=== PATIENT | female | born 1975 | race Caucasian/White ===

== ENCOUNTER 2024-02-06 18:11 | Emergency (ER) | payer MEDICARE, MEDICAID, SELFPAY ==
[2024-02-06 18:13] VITALS: BP 114/88
--- NOTE | 2024-02-06 18:35 | ED.GENMED ---
History of Present Illness
General
Chief Complaint: Head Injury
Source: caretaker grounds
Exam Limitations: other (Autistic)
Time Seen by Provider: 02/06/24 18:21
History of Present Illness
History of Present Illness:
This is a 48 year old female that is brought in by her care given with c/o facial injury. mission planner states that she just came on duty at 5pm and was old to bring her to the hospital. Patient has bruising around the right eye and they are unable to
say how this happened. Patient is unable to give you any information. mission planner denies any fever, chills, nausea, vomiting, diarrhea.
Past History
Past History
ED Past Medical History: NIDDM, Hypothyroidism, Psychiatric (Anxiety) and Other (Autism)
ED Past Surgical History: None
Social History
Tobacco: Non-smoker
Alcohol: None
Drug: None
Personal: Single
Living: alone (Has 24 hours care givers, Family visits once a week. )
Review of Systems
Review of Systems
Other source history: other (mission planner)
All Other Systems: ROS reviewed and negative except as documented in HPI and ROS
Constitutional: Reports no symptoms; Denies fever or chills
EENT: Reports no symptoms
Respiratory: Reports no symptoms
Cardiac: Reports no symptoms
ABD/GI: Reports no symptoms; Denies nausea, vomiting or diarrhea
: Reports no symptoms
Musculoskeletal: Reports no symptoms
Skin: Reports other (Contusion right eye)
Neurological: Reports no symptoms
Psychiatric: Reports anxiety
Phy Exam
General Physical Exam
General Presentation: no apparent distress
General age: appears stated age
General Skin: warm and dry
General Habitus: normal
General Mental: usual mental status
General Hydration: appears well hydrated
ENT Exam
ENT Exam: TM's normal, pharynx normal and neck supple
Eye Exam
Eye Exam: EOMI
Cardiovascular Exam
Cardiovascular Exam: regular rate/rhythm, no edema and normal peripheral pulses
Pulmonary Exam
Pulmonary Exam: lungs clear, no respiratory distress, no rales, chest non tender, no crackles, no rhonchi, no wheezing and no cough
Gastrointestinal Exam
Gastrointestinal Exam: normal bowel sounds, non tender, soft, no organomegaly, no pulsatile mass and non distended
Musculoskeletal Exam
Musculoskeletal Exam: full ROM and no edema
Skin Exam
Skin Exam: normal color, warm/dry, no petechia and other (Contusion around right eye. Unable to say if there is any pain with palpation but attempts to get off the bed. )
Psychiatric Exam
Psychiatric Exam: anxious
Course
Orders/Labs/Results
Orders:
Orders
02/06/24 18:33
CT Facial Bones W/o Iv Contras Urgent
Comment: Patient is autistic and unable to say what happene
Reason For Exam: Facial bruising,
CT Head W/o Iv Contrast Urgent
Comment:
Reason For Exam: Facial bruising Unknown injury,
02/06/24 18:35
Lorazepam [Ativan] 1 mg PO NOW STA
Vital Signs
Initial and Last Documented VS:
Initial Vital Signs
Temp Pulse Resp BP Pulse Ox
98.3 F 78 16 114/88 96
02/06/24 18:13 02/06/24 18:13 02/06/24 18:13 02/06/24 18:13 02/06/24 18:13
Last Documented Vital Signs
Temp Pulse Resp BP Pulse Ox
98.3 F 78 16 114/88 96
02/06/24 18:13 02/06/24 18:13 02/06/24 18:13 02/06/24 18:13 02/06/24 18:13
MDM/Problems Addressed
Differential Diagnosis Includes:
Contusion, Facial fractures.
MDM/Problems Addressed:
This is a 48 autistic patient that is brought in by caretaker grounds. mission planner states that she came on at 5pm and was told to bring her to the Hospital. Patient has bruising around the right eye. Unknown what caused her injury.
Will get CT head and facial bones.
Back into see mission planner and patient. Explained that the CT of her head and facial bones are negative for any acute process. This is just a contusion around the eye. It will go away on its own. Patient to follow up with the family doctor. Return
with any concerns.
Chronic conditions affecting care:
Autism
Acute Exacerbation and/or Progression of Chronic Illness:
Autism
*Radiology
Radiology exam reviewed: radiology read reviewed (CT head-there are no focal or acute intracranial abnormalities. there is mild diffuse cortical and cerebellar atrophy. CT facial bones-There ar no facial bone fractures. There is mild mucosal
thickening in both maxillary sinuses. )
*Pulse Oximetry
Patient hypoxic: no
*EKG
Interpreted by ED Provider?: NA
Rate: EKG- N/A
*Wrapper Hands Sprayer Interpretation
Rate: Wrapper Hands Sprayer- N/A
*Critical Care Note
Total Time (30-74mins, 75-104mins- exclusive of procedures): Not Applicable
ED Attending Note
-
Portions of this chart may have been created with voice recognition software.� Occasional wrong word or��sound alike� substitutions may have occurred due to the inherent limitations of voice recognition software.
Discharge Plan
Departure
Patient Disposition: Home (Routine Discharge)
Date of Disposition: 02/06/24
Time of Disposition: 19:50
Patient with high blood pressure during this ER visit?: No
Condition: Good
Covid-19: Not Applicable
Discharge Problem:
Black eye of right side
Instructions: Contusion (DC)
Referrals:
UNKNOWN - PT DOES,NOT KNOW [Family Provider] -
Activity Restrictions/Additional Instructions:
As discussed, your CT of the head and facial bones is negative for any acute process or fractures. You may use Ice to the right eye to help with swelling. Tylenol for any discomfort. Follow up with the family doctor as needed. IF YOU HAVE ANY OTHER
CONCERNS PLEASE RETURN TO THE EMERGENCY ROOM.
Interventions
Interventions:
*Risk Screen - Suicide Last Done: 02/06/24 19:08
*General Assessment Last Done: 02/06/24 19:08
*Neglect/Abuse Screening Last Done: 02/06/24 19:08
ED- Fall Risk Assessment Last Done: 02/06/24 19:08
*ED COVID-19 Vaccine History Last Done: 02/06/24 19:08
ED- Neurological Assessment Last Done: 02/06/24 18:45
ED-Skin Assessment Last Done: 02/06/24 18:45
Discharge Date and Time
Print Language: DIVEHI
[2024-02-06] MEDS: ATIVAN 1 MG PO (18:44)
== END 2024-02-06 19:57 | disposition home or self-care (01) ==
LOC: EMR 18:11
PROVIDERS: EMERGENCY PHYSICIAN Emergency Medicine
DX: S00.11XA Contusion of right eyelid and periocular area, initial encounter (principal); X58.XXXA Exposure to other specified factors, initial encounter; E11.9 Type 2 diabetes mellitus without complications; F41.9 Anxiety disorder, unspecified; F84.0 Autistic disorder; E03.9 Hypothyroidism, unspecified; G31.9 Degenerative disease of nervous system, unspecified; Z88.8 Allergy status to other drugs, medicaments and biological substances
CPT/HCPCS: 99284; 70450; 70486

== ENCOUNTER 2025-01-07 19:54 | Inpatient (IN) | payer MEDICARE, MEDICAID, SELFPAY ==
[2025-01-07 15:17] VITALS: BP 137/85
--- NOTE | 2025-01-07 17:37 | ED.GENMED ---
History of Present Illness
General
Chief Complaint: Skin Problem
Source: acute care physical therapist
Exam Limitations: other (Autism)
Time Seen by Provider: 01/07/25 17:18
History of Present Illness
History of Present Illness:
Noted to have a rash to the right abdominal wall days ago. Started Bactrim 2 doses. Rash spread today. Low-grade fever. No other issues noted by the staff. No shaking chills vomiting lethargy etc.
Past History
Past History
ED Past Medical History: NIDDM, Hypothyroidism, Psychiatric (Anxiety) and Other (Autism)
ED Past Surgical History: None
Social History
Tobacco: Non-smoker
Alcohol: None
Drug: None
Personal: Single
Living: alone (Has 24 hours care givers, Family visits once a week. )
Review of Systems
Review of Systems
All Other Systems: Not applicable
Constitutional: Reports fever; Denies chills
Respiratory: Reports no symptoms
Cardiac: Reports no symptoms
Phy Exam
Physical Exam
Physical Exam:
GENERAL: Alert. Does not interact. Autistic. Nontoxic however.
EYE: Orbits normal.
NECK: Supple
CARDIAC: Regular rate and rhythm without any obvious murmurs.
LUNGS: Clear breath sounds,normal
ABDOMEN: Soft, without focal tenderness or distention
NEUROLOGICAL: Alert and oriented , grossly non-focal
SKIN: Warm and dry, large area of ovoid erythema to the right upper anterior abdominal wall with central increased erythema. No fluctuance. No drainage. Most consistent with a infected bite.
MUSCULOSKELETAL: No edema,no deformity.Good color
PSYCH: Normal and appropriate interaction.
Course
Orders/Labs/Results
Orders:
Orders
01/07/25 Breakfast
Regular
At Your Request: Limited, Lay Out Helper Required
01/07/25 17:31
IV Insert/Care/Rem.- Treatment PRN
CeFAZolin 2 GRAM [Ancef] 2 grams in 10 ml IV NOW
01/07/25 17:37
Basic Metabolic Panel Urgent
Complete Blood Count/With Diff Urgent
Lyme Progressive Urgent
01/07/25 17:54
Blood Culture Q30M
JM Source: Blood/Venous
Specimen Description:
01/07/25 18:04
Acetaminophen [Tylenol] 650 mg .ROUTE .STK-MED ONE
01/07/25 18:06
Acetaminophen [Tylenol] 650 mg PO NOW STA
01/07/25 18:19
Blood Culture Urgent
JM Source: Blood/Venous
Specimen Description:
01/07/25 19:27
0.9% Sodium Chloride 500 ml [Nss] 500 ml IV BOLUS
01/07/25 19:30
Admit/Transfer Patient As Directed
Co-Sign Provider:
Level of Care: Inpatient admission
Assign to:: Telemetry
Physician / Group: galilea
Diagnosis: abdominal wall cellultisi
Reason for Telemetry: Arrhythmia
Date to Stop Telemetry: 01/10/25
Time to Stop Telemetry: 11:00
Reason for Hospitalization: abdominal wall cellulitis
Expected length of stay greater than two midnights?: Yes
ELOS- Estimated Length of Stay in days: 3
I certify the patient meets the requirements for IP care: Yes
PRN Pain Medication Management As Directed
May give lesser potent ordered pain med per pt: Yes
preference::
Protocol:: Medication orders for pain may be administered in a
manner that supports deferring to patient preference
when the pt is:
- Requesting an ordered lesser potent pain medication.
Least to most potent pain medications are defined
as: acetaminophen < NSAID < tramadol < opioids
(morphine, oxycodone, hydromorphone).
- Requesting a lesser dose of the same medication IF
ORDERED.
- Requesting a less intrusive route of administration
if both routes are prescribed by the provider (PO <
IV).
01/07/25 19:32
Code Status As Directed
Resuscitation Status: Full Code
01/07/25 19:49
Lorazepam [Ativan] 2 mg .ROUTE .STK-MED ONE
01/07/25 20:46
0.9% Sodium Chloride 1000 ml [Nss] 1,000 ml IV 100 mls/hr
Acetaminophen [Tylenol] 650 mg PO Q4HPRN PRN
Carbamide Peroxide [Debrox Ear Drops] See Dose Instructions OTIC BIDPRN PRN
CeFAZolin 2 GRAM [Ancef] 2 grams in 10 ml IV Q8H
Clonazepam [Klonopin] 0.5 mg PO BID
Clonazepam [Klonopin] 1 mg PO TID@08,16,20
Divalproex Extended Rel. 24 Hr [Depakote ER (24 Hr Release)] 500 mg PO BID
Docusate Sodium [Colace] 100 mg PO BID
betamethasone dipropionate 1 applic TOPICAL TIDPRN PRN
ferrous sulfate 140 mg PO BID
01/07/25 20:46
Activity As Directed
Activity Level: Out of Bed-Early Mobility
Intake/ Output As Directed
Frequency: Per unit guidelines
Vital Signs As Directed
Frequency: Per unit guidelines
DX Deep Vein Thrombosis Video Routine
01/07/25 22:00
Quetiapine Fumarate [Seroquel] 25 mg PO BID
Quetiapine Fumarate [Seroquel] 300 mg PO BID
01/08/25 06:00
Levothyroxine [Synthroid] 50 mcg PO DAILY @ 0600
01/08/25 08:00
Calcium Polycarbophil [Fibercon] 1,250 mg PO DAILY
Divalproex Extended Rel. 24 Hr [Depakote ER (24 Hr Release)] 250 mg PO DAILY
Sertraline HCl [Zoloft] 25 mg PO DAILY
norgestimate-ethinyl estradiol [Tri-Sprintec (28)] See Dose Instructions PO DAILY
01/08/25 18:00
Enoxaparin Sodium [Lovenox] 40 mg SC QPM
01/10/25 11:00
DC Protocol for Telemetry ONCE
Abnormal Lab Results
01/07/25
17:37
RBC 3.52 L 10^6/uL
(4.20-5.40)
Hgb 11.8 L g/dL
(12.0-16.0)
Hct 32.6 L %
(37.0-47.0)
MCH 33.5 H pg
(27.0-31.0)
MPV 10.9 H fL
(7.4-10.4)
Absolute Lymphs (auto) 0.7 L 10^3/uL
(1.2-3.4)
Absolute Monos (auto) 0.7 H 10^3/uL
(0.1-0.6)
Immature Gran % 0.6 H %
(0-0.5)
Lymphocytes % 14.2 L %
(20.5-51.1)
Monocytes % 14.2 H %
(1.7-9.3)
Sodium 133 L mmol/L
(135-145)
Glucose 121 H mg/dl
(70-99)
01/07/25 17:37
01/07/25 17:37
Vital Signs
Initial and Last Documented VS:
Initial Vital Signs
Temp Pulse Resp BP Pulse Ox
100.2 F 105 20 137/85 100
01/07/25 15:17 01/07/25 15:17 01/07/25 15:17 01/07/25 15:17 01/07/25 15:17
Last Documented Vital Signs
Temp Pulse Resp BP Pulse Ox
98.1 F 78 16 109/65 97
01/07/25 20:55 01/07/25 20:55 01/07/25 20:55 01/07/25 20:55 01/07/25 20:55
MDM/Problems Addressed
Differential Diagnosis Includes:
Patient with a cellulitic/infected bite appearance to the right upper abdominal wall. She is nontoxic otherwise however. She just darted Bactrim 2 doses ago. At this time I would not call this of Bactrim failure. Would also consider Lyme disease
given the ovoid appearance. Admission versus outpatient management at this time. Patient apparently would be quite difficult to manage in the hospital with her autism. Discussed this with the staff.
*Pulse Oximetry
Patient hypoxic: no
*Critical Care Note
Total Time (30-74mins, 75-104mins- exclusive of procedures): Not Applicable
ED Attending Note
-
Portions of this chart may have been created with voice recognition software.� Occasional wrong word or��sound alike� substitutions may have occurred due to the inherent limitations of voice recognition software.
Discharge Plan
Departure
Patient Disposition: Admit
Date of Disposition: 01/07/25
Time of Disposition: 19:09
Presentation/result/management discussed w/ accepting MD/DO: Hospitalist
Discharge Problem:
Abdominal wall cellulitis
Interventions
Interventions:
*Risk Screen - Suicide Last Done: 01/07/25 15:17
*General Assessment Last Done: 01/07/25 15:17
*Neglect/Abuse Screening Last Done: 01/07/25 15:17
*ED- Fall Risk Assessment Last Done: 01/07/25 18:34
*ED COVID-19 Vaccine History Last Done: 01/07/25 17:48
*Nursing Disposition Last Done: 01/07/25 20:42
ED-Skin Assessment Last Done: 01/07/25 17:48
Discharge Date and Time
Discharge Date/Time: 01/07/25 20:43
[2025-01-07 17:50] LABS: % Basophils 0.6 % (0-2); % Immature Granulocytes 0.6 % (0-0.5); % Lymphocytes 14.2 % (20.5-51.1); % Monocytes 14.2 % (1.7-9.3); % Neutrophils 70.4 % (42.2-75.2); Absolute Lymphocytes 0.7 10^3/uL (1.2-3.4); Absolute Monocytes 0.7 10^3/uL (0.1-0.6); Absolute Neutrophils 3.6 10^3/uL (1.4-6.5); Hematocrit 32.6 % (37.0-47.0); Hemoglobin 11.8 g/dL (12.0-16.0); Mean Corp Hgb Conc. 36.2 g/dL (33.0-37.0); Mean Corpuscular Hgb 33.5 pg (27.0-31.0); Mean Corpuscular Volume 92.6 fL (81.0-99.0); Mean Platelet Volume 10.9 fL (7.4-10.4); Nucleated Red Blood Cells % 0 %; Platelet Count 142 10^3/uL (130-400); Red Blood Cell Count 3.52 10^6/uL (4.20-5.40); Red Cell Dist. Width 12.8 % (11.5-14.5); White Blood Cell Count 5.1 10^3/uL (4.8-10.8)
[2025-01-07] MEDS: ANCEF 10 IV (17:57)
[2025-01-07 18:02] VITALS: BP 136/64
[2025-01-07] MEDS: TYLENOL 650 MG PO (18:06)
[2025-01-07 18:07] LABS: Blood Urea Nitrogen 14 mg/dl (7-17); Calcium 8.7 mg/dl (8.4-10.2); Carbon Dioxide 26 mmol/L (22-30); Chloride 102 mmol/L (98-107); Glucose 121 mg/dl (70-99); Potassium 4.2 mmol/L (3.5-5.1); Sodium 133 mmol/L (135-145); eGFR > 60.00
--- NOTE | 2025-01-07 19:12 | HPS.HSE ---
Family Physician
-
Family Physician: Ashia Ortez
Chief Complaint
-
right abdominal wall cellulitis
History of Present Illness
49 year old with PMH for anxiety, intellectual disability, Autism, Bipolar presented to us right abdominal wall cellulitis since Saturday. it got progressively worse and noted low grade temp today. ROS is limited as patient is disable. patient
received Bactrim since yesterday.
Patient received Ancef in ER. Admitted for further management
Medical History
Past Medical History
Past Medical History: Reports Other
Additional Past Medical History:
NIDDM
hypothyroidism
anxiety
Autism
Past Surgical History: Reports None
Social History
Tobacco: Non-smoker
Alcohol: None
Drug: None
Personal: Single
Family History
Family History: Not pertinent
Allergies / Home Medications
Allergies reflects when Allergies were last updated in [facility].
Home Medications with original date entered in [facility]
Allergy/Medication List:
Allergies
Allergy/AdvReac Type Severity Reaction Status Date / Time
carbamazepine [From Tegretol] Allergy Unknown Verified 01/07/25 15:22
fenofibrate nanocrystallized Allergy Unknown Verified 01/07/25 15:22
[From Tricor]
fenofibrate,micronized Allergy Unknown Verified 01/07/25 15:22
[From Tricor]
lithium Allergy Rash Verified 01/07/25 15:22
phenytoin sodium Allergy Rash Verified 01/07/25 15:22
[From Dilantin]
phenytoin sodium extended Allergy Rash Verified 01/07/25 15:22
[From Dilantin]
Home Medications
acetaminophen 325 mg tablet (Tylenol) 650 mg PO Q4HPRN PRN mild pain 01/07/25
betamethasone dipropionate 0.05 % lotion 1 applic topical TIDPRN PRN fac,arms,stomach 01/07/25
bismuth subsalicylate 262 mg tablet (Stomach Relief) 262 mg PO TIDPRN PRN stomach issuses 01/07/25
calamine 1 ea topical TIDPRN PRN hives 01/07/25
calcium polycarbophil 625 mg tablet (FiberCon) 1,250 mg PO DAILY 01/07/25
carbamide peroxide 6.5 % ear drops (Debrox) 2 drp otic (ear) BIDPRN PRN ear wax 01/07/25
clobetasol 0.05 % topical ointment 1 applic topical BID poison pablo 01/07/25
clonazepam 0.5 mg tablet 0.5 mg PO BID 01/07/25
clonazepam 1 mg tablet 1 mg PO TID@08,16,20 01/07/25
diphenhydramine HCl 50 mg capsule (Banophen) 50 mg PO Q4HPRN PRN alleriges 01/07/25
divalproex 250 mg tablet,extended release 24 hr 250 mg PO DAILY 01/07/25
divalproex 500 mg tablet,extended release 24 hr 500 mg PO BID 01/07/25
docusate sodium 100 mg capsule (Colace) 100 mg PO BID 01/07/25
ferrous sulfate 140 mg (45 mg iron) tablet,extended release 140 mg PO BID 01/07/25
guaifenesin 100 mg/5 mL oral liquid 400 mg PO QIDPRN PRN cough 01/07/25
hydrocortisone 1 % lotion 1 applic topical BIDPRN PRN dry skin 01/07/25
ibuprofen 200 mg tablet (Advil) 200 mg PO Q4HPRN PRN mild pain 01/07/25
levothyroxine 50 mcg tablet (Synthroid) 50 mcg PO DAILY 01/07/25
loratadine 10 mg tablet 10 mg PO DAILYPRN PRN allergies 01/07/25
lorazepam 1 mg tablet 1 mg PO DAILYPRN PRN 2 hours before appointments 01/07/25
neomycin-bacitracn Zn-polymyxn 3.5 mg-400 unit-5,000 unit top oint pkt (Triple Antibiotic) 1 applic topical BIDPRN PRN scratches 01/07/25
norgestimate-ethinyl estradiol 0.18mg/0.215mg/0.25mg-0.035mg(28)tablet (Tri-Sprintec (28)) 1 tab PO DAILY 01/07/25
phenylephrine 0.25 %-pramoxine 1 %-glycerin-wh.petrolatum rectal cream (Hemorrhoidal Cream) 1 applic MA TIDPRN PRN hemmorriods 01/07/25
quetiapine 25 mg tablet (Seroquel) 25 mg PO BID 01/07/25
quetiapine 300 mg tablet (Seroquel) 300 mg PO BID 01/07/25
sertraline 25 mg tablet 25 mg PO DAILY 01/07/25
sodium hypochlorite 0.5 % solution (Dakin's Solution) 1 applic topical DAILYPRN PRN where finger nail came off 01/07/25
Review of Systems
-
Constitutional: Reports No Symptoms
EENT: Reports No Symptoms
Respiratory: Reports No Symptoms
Cardiac: Reports No Symptoms
Abdomen/GI: Reports No Symptoms
: Reports No Symptoms
Musculoskeletal: Reports No Symptoms
Skin: Reports Rash
Neurological: Reports No Symptoms
Endocrine: Reports No Symptoms
Hematologic/Lymphatic: Reports No Symptoms
Psych: Reports No Symptoms
Physical Exam
Vital Signs
Vital Signs
Temp Pulse Resp BP Pulse Ox
102.2 F H 100 18 136/64 99
01/07/25 17:47 01/07/25 18:02 01/07/25 18:02 01/07/25 18:02 01/07/25 18:02
Physical Exam
General: Well Developed, Well Nourished and No Apparent Distress
HEENT: NormoCephalic, Moist mucous membranes and Atraumatic
Respiratory: Clear
Cardiac: S1/S2 and Regular Rhythm; No Murmur or Rub
GI: Soft, Non Tender, Non Distended and Normal Bowel Sounds; No Organomegaly
Rectal: Deferred by Provider
Musculoskeletal: No Clubbing, No Cyanosis and No Edema
Skin: Rash and Other (Right-sided abdominal wall rash)
Neuro: Nonfocal/grossly intact
Psych: Calm
Laboratory Results
-
01/07/25 17:37
01/07/25 17:37
Data Reviewed
-
Lab Data: Labs Reviewed by me
Impression/Plan
-
#sepsis secondary to abdominal wall cellulitis
-sepsis as evident by temp of 102.2, HR 100
-blood culture sent from ER
- IV Ancef
- Tylenol as needed for fever
- Fluids continued
# Autism
# Intellectual disability
# Bipolar/anxiety
- Sertraline, Seroquel lorazepam, Depakote, clonazepam continued
# Hypothyroidism
- Levothyroxine continued
# DVT prophylaxis
- Lovenox subcu
# CODE STATUS
-full code
-
--- NOTE | 2025-01-07 19:26 | W.PN.UPDATE ---
Update Note
Progress Note Update
Patient seen in conjunction with YADIRA. I agree with the findings and Scope. I concur with assessment plan listed otherwise.
Briefly, this is a 49-year-old female past medical history of intellectual developmental delay, autism, bipolar disorder, presenting to the emergency department with worsening or right-sided abdominal rash and fever.
Patient lives by self with 24-hour caregivers due to her condition and appear to be under the care of guardian institution. They reported that she had a small red spots that developed about 2 days ago. Yesterday she was seen at urgent care and was
diagnosed with cellulitis. She was started on Bactrim. She took a dose of Bactrim yesterday and today. When she was seen by the visiting nurse today they noticed a fever and worsening redness. Patient unable to provide history of self.
Family/caregiver denies any itching or scratching. They denied any known wounds. They denied any known animal or insect bites.
In the emergency department the patient was febrile to 102.2, blood pressure was 136/64 with a pulse rate of 100 and she was satting 99% on room air.
CBC was unremarkable. Electrolytes BUN/creatinine were all in the normal range.
Assessment and plan
49-year-old with history of intellectual developmental delay, bipolar disorder who presents to the emergency department with worsening abdominal cellulitis of unknown etiology. I suspect possibility of insect bite as the original source however
with the fever and with increasing redness there is suggestion of sepsis secondary to cellulitis.
- admit to med/surg
- Blood cultures
- IV cefazolin
- Check MRSA swab
- 1 L NS bolus, continue at 100 cc/h of normal saline
- Continue home medications
- Will as needed lorazepam for agitation
- DVT PPX - lovenox sq
Code status - Full Code
[2025-01-07] MEDS: NSS 500 IV (19:56)
[2025-01-07] MEDS: ATIVAN 0.5 MG IV (20:03)
[2025-01-07 20:55] VITALS: BP 109/65
--- NOTE | 2025-01-07 21:30 | PTCARENOTE ---
Received patient from ER. AAO X1. home care chaplain at bedside. Agitated. trying to pull out IV/ tele. unable to redirect. House SHEET METAL SUPERINTENDENT notified
[2025-01-07] MEDS: KLONOPIN 1 MG PO (21:50)
[2025-01-07] MEDS: KLONOPIN 0.5 MG PO (21:50)
[2025-01-07] MEDS: COLACE 100 MG PO (21:50)
[2025-01-07] MEDS: SEROQUEL 300 MG PO (21:50)
[2025-01-07] MEDS: SEROQUEL 25 MG PO (21:50)
[2025-01-07] MEDS: NSS 1000 IV (21:51)
[2025-01-07] MEDS: FEOSOL 325 MG PO (21:51)
--- NOTE | 2025-01-07 22:00 | PTCARENOTE ---
Soft limb wrist restraint applied as per order. House provider also notified of abdomen cellulitis site.
[2025-01-07] MEDS: DEPAKOTE ER (24 HR RELEASE) 500 MG PO (22:20)
[2025-01-07 23:38] VITALS: BP 105/63
--- NOTE | 2025-01-08 00:03 | W.PN.UPDATE ---
Update Note
Progress Note Update
RN reported patient agitated, screaming, trying to pull IV line out, unable to calm patient down or redirect requesting soft wrist restraints.
one hour later, patient continuos to be agitated, screaming trying to get out of bed, ripping tele monitor leads off, IV off,. requesting 4 point restraints
bladder scan>600, straight cath once, stable VS
Advised restraints off, IV fluid off, placed on Med Surg, as patient continuously ripping things off. Patient already received Clonazepam, Seroquel home dose and 1mg IV Ativan in ER. Dr Hsu made aware of the current situations.
Advised order of Haldol 5mg IV, Ativan 1mg IV. Order placed.
Patient seen and evaluated, autistic, conversant, continuos to be agitated, very impulsive, constantly trying to get out of bed, patient wanted to wear her own clothes (not hospital gown) and wanted her bag, resting in Nicky chair with her personal
bag now
20 minutes later, patient impulsive again, wanted to go to bed completely undressed, rest with sheet alone which home care companion stated, this is how patient always goes to sleep
high risk for fall, fall precautions maintained, 1:1 for safety advised, Nursing wood mill supervisor made aware.
patient is resting in bed at present.
[2025-01-08] MEDS: HALDOL 5 MG IV (00:09)
[2025-01-08] MEDS: ATIVAN 1 MG IV (00:10)
[2025-01-08] MEDS: NSS (PRESERVATIVE FREE) 0.5 ML IV (00:11)
--- NOTE | 2025-01-08 00:38 | PTCARENOTE ---
Dcd tele/ IVF as per order as patient is getting more agitated. Given Haldol/ Ativan as ordered. straight cathed patient a patient unable to urinate.
[2025-01-08 00:45] LABS: Urine Albumin Negative (Neg - Trace); Urine Bilirubin Negative (Negative); Urine Character Clear (Clear); Urine Color Yellow; Urine Glucose 2+ (Negative); Urine Ketone Negative (Negative); Urine Leukocyte Negative (Negative); Urine Nitrite Negative (Negative); Urine Occult Blood Negative (Negative); Urine Urobilinogen Negative (Neg - 1+)
[2025-01-08] MEDS: ANCEF 10 IV (02:47)
[2025-01-08] MEDS: SYNTHROID PO (06:37)
[2025-01-08 07:20] VITALS: BP 126/79
--- NOTE | 2025-01-08 07:31 | PTCARENOTE ---
EKG ordered this morning, patient is sleeping / getting agitated . will pass to next shift.
[2025-01-08 08:34] LABS: % Basophils 0.6 % (0-2); % Eosinophils 0.2 % (0-6); % Immature Granulocytes 0.4 % (0-0.5); % Monocytes 12.8 % (1.7-9.3); Absolute Lymphocytes 0.5 10^3/uL (1.2-3.4); Absolute Monocytes 0.6 10^3/uL (0.1-0.6); Absolute Neutrophils 3.6 10^3/uL (1.4-6.5); Blood Urea Nitrogen 11 mg/dl (7-17); Calcium 8.4 mg/dl (8.4-10.2); Carbon Dioxide 28 mmol/L (22-30); Chloride 103 mmol/L (98-107); Estimated Creatinine Clearance 89 ml/min; Glucose 199 mg/dl (70-99); Hematocrit 30.6 % (37.0-47.0); Hemoglobin 10.9 g/dL (12.0-16.0); Mean Corp Hgb Conc. 35.6 g/dL (33.0-37.0); Mean Corpuscular Hgb 32.9 pg (27.0-31.0); Mean Corpuscular Volume 92.4 fL (81.0-99.0); Mean Platelet Volume 11.2 fL (7.4-10.4); Nucleated Red Blood Cells % 0 %; Platelet Count 127 10^3/uL (130-400); Potassium 4.2 mmol/L (3.5-5.1); Red Blood Cell Count 3.31 10^6/uL (4.20-5.40); Red Cell Dist. Width 12.6 % (11.5-14.5); Sodium 135 mmol/L (135-145); White Blood Cell Count 4.8 10^3/uL (4.8-10.8); eGFR > 60.00
[2025-01-08] MEDS: FIBERCON 1250 MG PO (09:46)
[2025-01-08] MEDS: DEPAKOTE ER (24 HR RELEASE) 500 MG PO ×2 (09:46→20:16)
[2025-01-08] MEDS: ZOLOFT 25 MG PO (09:46)
[2025-01-08] MEDS: KLONOPIN 0.5 MG PO ×2 (09:46→20:16)
[2025-01-08] MEDS: COLACE 100 MG PO ×2 (09:47→20:16)
[2025-01-08] MEDS: SEROQUEL 25 MG PO ×2 (09:47→20:16)
[2025-01-08] MEDS: SEROQUEL 300 MG PO ×2 (09:47→20:15)
[2025-01-08] MEDS: KLONOPIN 1 MG PO ×3 (09:47→20:16)
[2025-01-08] MEDS: FEOSOL 325 MG PO ×2 (09:47→20:16)
[2025-01-08] MEDS: DEPAKOTE ER (24 HR RELEASE) 250 MG PO (10:14)
--- NOTE | 2025-01-08 11:08 | W.PN.HOSP.TC ---
Today's Communication/Plan
-
Given agitation not able to keep IV line in
Changed cefazolin to intramuscular with addition of oral doxycycline
Follow-up blood cultures and MRSA screen
Assessment / Plan
Assessment / Plan
Impression:
Abdominal wall cellulitis with concern for bite
Initiated on Bactrim as outpatient and presents with fever.
Nontoxic with no evidence of generalized infection.
Sepsis ruled out
Blood cultures pending
MRSA screen pending
Initiated on cefazolin with reported improvement in reduction area of erythema and induration
Patient is OT stick and agitated would not allow her to have intravenous line.
To avoid oversedation and restraints will try to switch was open to intramuscular.
Add doxycycline
Follow cultures and MRSA screen
Autism/intellectual disability.
Continue preadmission medications including Depakote, Klonopin, Seroquel, Zoloft
Supportive care
Avoid oversedation
Hypothyroidism
Continue levothyroxine
Anticipated Discharge: 24 - 48 hours
Subjective/Interval History
-
Date of Service: January 08, 2025
Objective Data
-
Labs:
Laboratory Results
01/08/25
08:06
WBC 4.8
Hgb 10.9 L
Hct 30.6 L
Plt Count 127 L
Sodium 135
Potassium 4.2
Chloride 103
Carbon Dioxide 28
BUN 11
Creatinine 0.6
Glucose 199 H
Calcium 8.4
Vital Signs:
Vital Signs
Temp Pulse Resp BP Pulse Ox
99.4 F 113 18 126/79 100
01/08/25 07:20 01/08/25 07:20 01/08/25 07:20 01/08/25 07:20 01/08/25 07:20
I&O
01/07/25 01/08/25 01/09/25
06:59 06:59 06:59
Intake Total 240 / 240
Output Total 850 / 850
Balance -610 / -610
Physical Exam
-
General: Well Developed and No Apparent Distress
HEENT: Normocephalic, Atraumatic and Moist Mucous Membranes
Respiratory: Clear to Auscultation
Cardiac: Regular Rhythm and S1/S2; Negative Murmur, Rub or Gallop
GI: Soft, Nontender, Nondistended and Normal Bowel Sounds; Negative Organomegaly
Rectal: Deferred by Provider
Musculoskeletal: No Clubbing, No Cyanosis and No Edema
Skin: Other (Abdominal wall cellulitis at the right upper/lower quadrant ovoid area with significant erythema and induration without fluctuance); Negative Rash
Neuro: Awake, Alert, Oriented, AO x 3 (Name.) and Nonfocal/Grossly Intact
Psych: Agitated and Anxious
[2025-01-08 11:26] VITALS: BP 131/83
[2025-01-08] MEDS: VIBRAMYCIN 100 MG PO ×2 (11:49→20:16)
[2025-01-08] MEDS: ANCEF 3 MG IM ×4 (11:50→20:15)
[2025-01-08] MEDS: ANCEF IV (12:03)
--- NOTE | 2025-01-08 15:24 | CM ---
Patient seen at bedside with caregiver
IA completed-obtained by Baron case folder/caregiver
DX: R abd wall cellulitis
PMH: Intellectual disability, anxiety, autism, bipolar
Patient lives in a 1 story home with 24/7 caregivers through [facility] in [place] [phone]
case folder/caregiver Baron Briceno in room with patient ([phone])
PLOF: independent, does not use assistive device
Denies DME
Denies VN/Rehab
PCP: Ashia Ortez [facility]
Pharmacy: [address], [place]
PLAN: Home with 24/7 caregivers, when stable
[2025-01-08 15:25] VITALS: BP 106/81
[2025-01-08] MEDS: LOVENOX 40 MG SC (18:10)
[2025-01-08 23:18] VITALS: BP 104/55
[2025-01-09] MEDS: ANCEF 3 MG IM ×2 (04:02)
[2025-01-09] MEDS: SYNTHROID 50 MCG PO (05:49)
[2025-01-09 07:00] VITALS: BP 109/75
--- NOTE | 2025-01-09 07:25 | W.PN.HOSP.TC ---
Today's Communication/Plan
-
Discharge today
Assessment / Plan
Assessment / Plan
Physical Exam
General: Well Developed and No Apparent Distress
HEENT: Normocephalic, Atraumatic and Moist Mucous Membranes
Respiratory: Clear to Auscultation Bilaterally
Cardiac: Regular Rhythm and S1/S2
GI: Soft, Nontender, Nondistended and Normal Bowel Sounds
Musculoskeletal: No Cyanosis and No Edema
Skin: Other (Abdominal wall cellulitis at the right upper/lower quadrant ovoid area with erythema and induration without fluctuance)
Neuro: Awake, Alert, Oriented, AO x 3 (Name) and Nonfocal/Grossly Intact
Psych: Agitated and Anxious
Impression:
Abdominal wall cellulitis with concern for bite versus picking with hands (patient's father mentioned that patient tends to pick and scratch areas that are itchy or bothering her)
Initiated on Bactrim as outpatient and presented with fever.
Nontoxic with no evidence of generalized infection.
Sepsis ruled out
Blood cultures with no growth to date
MRSA screen negative
Initiated on cefazolin with reported improvement in reduction area of erythema and induration
Patient is OT stick and agitated would not allow her to have intravenous line.
To avoid oversedation and restraints was switched to intramuscular Cefazolin
Patient improving on first generation Cephalosporin and Doxycycline combination regimen
On discharge, switch to Cephalexin 500 mg Q6H for another 7 days
Doxycycline added on 01/08/25 -- continue for another 7 days
Follow-up with PCP to see if longer course of antibiotics needed
Autism/intellectual disability.
Continue preadmission medications including Depakote, Klonopin, Seroquel, Zoloft
Supportive care
Avoid oversedation
Hypothyroidism
Continue levothyroxine
Today. I spoke with patient's father who is in agreement with patient being discharged today.
More than 30 minutes spent in discharge including
Final examination of the patient
Summarizing hospital stay
Instructions for continuing care to all relevant caregivers
Preparation of discharge records, prescriptions, and referral forms
Total time spent (in minutes): 40
Anticipated Discharge: Today
Subjective/Interval History
-
Date of Service: January 09, 2025
Patient was seen and examined. No new symptoms or complaints.
Objective Data
-
Vital Signs:
Vital Signs
Temp Pulse Resp BP Pulse Ox
97.9 F 77 18 104/55 100
01/08/25 23:18 01/08/25 23:18 01/08/25 23:18 01/08/25 23:18 01/08/25 23:18
I&O
01/08/25 01/09/25 01/10/25
06:59 06:59 06:59
Intake Total 240 / 240 600 / 600
Output Total 850 / 850
Balance -610 / -610 600 / 600
[2025-01-09] MEDS: KLONOPIN 0.5 MG PO (08:21)
[2025-01-09] MEDS: COLACE 100 MG PO (08:21)
[2025-01-09] MEDS: ZOLOFT 25 MG PO (08:21)
[2025-01-09] MEDS: FIBERCON 1250 MG PO (08:22)
[2025-01-09] MEDS: KLONOPIN 1 MG PO (08:22)
[2025-01-09] MEDS: DEPAKOTE ER (24 HR RELEASE) 250 MG PO (08:22)
[2025-01-09] MEDS: VIBRAMYCIN 100 MG PO (08:22)
[2025-01-09] MEDS: SEROQUEL 300 MG PO (08:22)
[2025-01-09] MEDS: DEPAKOTE ER (24 HR RELEASE) 500 MG PO (08:22)
[2025-01-09] MEDS: SEROQUEL 25 MG PO (08:22)
[2025-01-09] MEDS: FEOSOL 325 MG PO (08:23)
[2025-01-09 08:32] LABS: Hematocrit 33.3 % (37.0-47.0); Hemoglobin 11.5 g/dL (12.0-16.0); Mean Corp Hgb Conc. 34.5 g/dL (33.0-37.0); Mean Corpuscular Hgb 32.7 pg (27.0-31.0); Mean Corpuscular Volume 94.6 fL (81.0-99.0); Platelet Count 160 10^3/uL (130-400); Red Blood Cell Count 3.52 10^6/uL (4.20-5.40); Red Cell Dist. Width 12.5 % (11.5-14.5); White Blood Cell Count 3.5 10^3/uL (4.8-10.8)
--- NOTE | 2025-01-09 11:13 | W.DCSUMMARY ---
Discharge Summary
Discharge Data
Date of Admission: 01/07/25
Date of Discharge: 01/09/25
Total time spent discharging patient (in min): 40
-
Pending Results: Yes
Additional Pending Results:
Final results of microbiology studies/cultures from hospitalization
Hospital Course
49-year-old female with past medical history of intellectual developmental delay, autism and bipolar disorder, presented to the emergency department with worsening right-sided abdominal rash and fever. Blood cultures were drawn. Patient was started
on intravenous antibiotics and intravenous fluids. A few hours after admission, patient's nurse reported patient was agitated, screaming, trying to pull her intravenous line out, unable to calm patient down or redirect, patient needed restraints,
and medications for agitation were ordered. Patient was placed on 1:1 observation. Patient's intravenous antibiotic was switched to intramuscular given agitation. Patient's cellulitis improved, her case was discussed on the day of discharge between
hospitalist and patient's father on the day of discharge, patient was doing better, MRSA swab was negative, patient was stable for discharge, and patient's father was also in agreement with patient being discharged.
Discharge Plan
-
Patient Disposition: Home with Home Care
Discharge Diagnosis/Procedures: Abdominal wall cellulitis with concern for bite versus picking with hands (patient's father mentioned that patient tends to pick and scratch areas that are itchy or bothering her)
Autism/intellectual disability.
Hypothyroidism
Condition: Good
Diet: As tolerated
Activity: As tolerated
Driving Restrictions: No driving
Other Services: VN
Activity Restrictions/Additional Instructions:
Please see primary care physician Dr. Ortez by Saturday01/12/25 to see if your antibiotic course needs to be prolonged and to re-evaluate your skin infection.
If there are any new symptoms or pain or increased redness or drainage or fever or any other concerning symptom or sign (for example drowsiness, palpitation, elevated heart rate, fever, etc), please return to the emergency room right away. If skin
infection is getting worse, please return to the emergency room right away.
Instructions: Cephalexin, Doxycycline, Cellulitis (skin infection) in adults - Discharge instructions
Referrals:
Ashia Ortez, [Family Provider] - in three to four days (Hospital Follow-Up of Skin Infection)
Additional Discharge Medication Instructions: Cephalexin and Doxycycline are new medications.
Prescriptions:
New
cephalexin 500 mg tablet
500 mg PO Q6H 8 Days Qty: 32 0RF
doxycycline hyclate 100 mg tablet
100 mg PO Q12H 8 Days Qty: 16 0RF
Continued
quetiapine [Seroquel] 25 mg Tablet
25 mg PO BID
acetaminophen [Tylenol] 325 mg Tablet
650 mg PO Q4HPRN PRN (Reason: mild pain)
quetiapine [Seroquel] 300 mg Tablet
300 mg PO BID
diphenhydramine HCl [Banophen] 50 mg Capsule
50 mg PO Q4HPRN PRN (Reason: alleriges)
hydrocortisone 1 % Lotion
1 applic TOPICAL BIDPRN PRN (Reason: dry skin)
clonazepam 0.5 mg Tablet
0.5 mg PO BID
clonazepam 1 mg Tablet
1 mg PO TID@08,16,20
guaifenesin 100 mg/5 mL Liquid
400 mg PO QIDPRN PRN (Reason: cough)
levothyroxine [Synthroid] 50 mcg Tablet
50 mcg PO DAILY
divalproex 500 mg Tablet Extended Release 24 Hr
500 mg PO BID
calcium polycarbophil [FiberCon] 625 mg Tablet
1,250 mg PO DAILY
ibuprofen [Advil] 200 mg Tablet
200 mg PO Q4HPRN PRN (Reason: mild pain)
Debrox 6.5 % Drops
2 drp OTIC (EAR) BIDPRN PRN (Reason: ear wax)
docusate sodium [Colace] 100 mg Capsule
100 mg PO BID
sertraline 25 mg Tablet
25 mg PO DAILY
norgestimate-ethinyl estradiol [Tri-Sprintec (28)] 0.18/0.215/0.25 mg-0.035mg (28) Tablet
1 tab PO DAILY
Stomach Relief 262 mg Tablet
262 mg PO TIDPRN PRN (Reason: stomach issuses)
clobetasol 0.05 % Ointment
1 applic TOPICAL BID
lorazepam 1 mg Tablet
1 mg PO DAILYPRN PRN (Reason: 2 hours before appointments)
calamine Lotion
1 ea TOPICAL TIDPRN PRN (Reason: hives)
betamethasone dipropionate 0.05 % Lotion
1 applic TOPICAL TIDPRN PRN (Reason: fac,arms,stomach)
loratadine 10 mg Tablet
10 mg PO DAILYPRN PRN (Reason: allergies)
Dakin's Solution 0.5 % Solution
1 applic TOPICAL DAILYPRN PRN (Reason: where finger nail came off)
divalproex 250 mg Tablet Extended Release 24 Hr
250 mg PO DAILY
Hemorrhoidal Cream 0.25-1 % Cream
1 applic TX TIDPRN PRN (Reason: hemmorriods)
Triple Antibiotic 3.5-400-5,000 [id number] Ointment In Packet
1 applic TOPICAL BIDPRN PRN (Reason: scratches)
ferrous sulfate 140 mg (45 mg iron) Tablet Extended Release
140 mg PO BID
Discharge Orders:
Discharge Patient (As Directed); Ordered 01/09/25
Ordered By: Scout Wilson
Discharge Date and Time
Discharge Date/Time: 01/09/25 12:06
Print Language: THAI
[2025-01-09 11:17] LABS: % Basophils 0.6 % (0-2); % Eosinophils 2.3 % (0-6); % Immature Granulocytes 0.3 % (0-0.5); % Lymphocytes 28.6 % (20.5-51.1); % Monocytes 18.7 % (1.7-9.3); % Neutrophils 49.5 % (42.2-75.2); Absolute Eosinophils 0.1 10^3/uL (0-0.7); Absolute Monocytes 0.7 10^3/uL (0.1-0.6); Absolute Neutrophils 1.8 10^3/uL (1.4-6.5); Nucleated Red Blood Cells % 0 %
--- NOTE | 2025-01-09 12:12 | CM ---
Addendum entered by Brynn Jarrell 01/09/25 12:14:
No additional skilled services required.
Original Note:
Patient has been medically cleared for discharge back to [facility] in [place]. Katty, pants cutter, will transport. IMM signed. Father notified by .
[2025-01-11 11:15] LABS: Lyme Antibody Screen, EIA Negative (Negative)
== END 2025-01-09 12:06 | disposition home or self-care (01) | DRG 603 ==
LOC: 2 NORTH 19:54
PROVIDERS: Internal Medicine; Nurse Practitioner Gerontology; ADMITTING PHYSICIAN Internal Medicine; ATTENDING PHYSICIAN Hospitalist; EMERGENCY PHYSICIAN Emergency Medicine; FAMILY PHYSICIAN Internal Medicine
DX: L03.311 Cellulitis of abdominal wall (principal); F84.0 Autistic disorder; F41.9 Anxiety disorder, unspecified; F31.9 Bipolar disorder, unspecified; E03.9 Hypothyroidism, unspecified
CPT/HCPCS: 80048; 81003; 85025; 86618; 87040; 87070; 93005; 96361; 96374; 96375; 99284